=== PATIENT | male | born 1945 | race Caucasian/White ===

== ENCOUNTER 2021-02-17 12:52 | Emergency (ER) | payer MEDICARE, MEDICAID ==
[~2021-02-17] VITALS: Ht 167.6 cm; Wt 95.5 kg
[2021-02-17 13:02] VITALS: BP 122/54
[2021-02-17 14:12] LABS: COVID AG,FIA SOURCE NASOPHARYNGEAL
== END 2021-02-17 15:56 | disposition home or self-care (01) ==
LOC: EMS 13:03
DX: Z20.822 Contact with and (suspected) exposure to COVID-19 (principal); I10 Essential (primary) hypertension; E11.9 Type 2 diabetes mellitus without complications; Z91.013 Allergy to seafood
CPT/HCPCS: 87426; 99283; U0003